=== PATIENT | male | born 1980 | race Caucasian/White ===

== ENCOUNTER 2024-01-24 18:37 | Emergency (ER) | payer BC ==
[2024-01-24 18:51] VITALS: BP 106/53; PULSE 58; RESP 18; TEMP 98.4
== END 2024-01-24 20:34 | disposition short-term general hospital (02) ==
LOC: JER 18:37
DX: F19.20 Other psychoactive substance dependence, uncomplicated (principal)
CPT/HCPCS: 99283-25; 99284-25; 99285-25

== ENCOUNTER 2024-01-24 21:04 | Inpatient (IN) | payer BC ==
[2024-01-24 21:47] VITALS: BMI 19.5
[2024-01-24] MEDS ORDERED: MAGNESIUM HYDROX 2400MG/30ML ORAL SUSPENSION 30 ML CUP PO PRN (22:38)
[2024-01-24] MEDS ORDERED: NALOXONE HCL 0.4 MG/ML VIAL IM PRN (22:38)
[2024-01-24] MEDS ORDERED: LOPERAMIDE HCL 2 MG CAPSULE PO PRN (22:38)
[2024-01-24] MEDS ORDERED: BENZONATATE 200 MG CAPSULE PO PRN (22:38)
[2024-01-24] MEDS ORDERED: BISMUTH SUBSALICYLATE 524 MG/30 ML PO PRN (22:38)
[2024-01-24] MEDS ORDERED: NICOTINE POLACRILEX 4 MG GUM BUC PRN (22:38)
[2024-01-24] MEDS ORDERED: guaiFENesin 600 MG TABLET.ER (FP) PO PRN (22:38)
[2024-01-24] MEDS ORDERED: NALOXONE HCL (KLOXXADO) 8 MG SPRAY NS PRN (22:38)
[2024-01-24] MEDS ORDERED: ACETAMINOPHEN 325 MG TABLET (FP) PO PRN (22:38)
[2024-01-24] MEDS ORDERED: BENZOCAINE/MENTHOL (CHLORASEPTIC ) LOZENGE MM PRN (22:38)
[2024-01-24] MEDS ORDERED: ONDANSETRON *ODT* 4 MG TABLET SL PRN (22:38)
[2024-01-24] MEDS ORDERED: MAG HYDROX/AL HYDROX/SIMETH 30 ML UNIT-DOSE CUP PO PRN (22:38)
[2024-01-24] MEDS ORDERED: DICYCLOMINE HCL 10 MG CAPSULE PO PRN (22:38)
[2024-01-24] MEDS ORDERED: POLYETHYLENE GLYCOL (HEALTHYLAX) 3350 17 GM PACKET PO PRN (22:38)
[2024-01-25] MEDS: hydrOXYzine PAMOATE 25 MG CAPSULE (FP) PO PRN (07:39)
[2024-01-25] MEDS: IBUPROFEN 400 MG TABLET (FP) PO PRN (07:39)
[2024-01-25] MEDS: METHOCARBAMOL 500 MG TABLET PO PRN (07:39)
[2024-01-25] MEDS: methaDONE HCL 10 MG TABLET (FOR DETOX USE ONLY) PO ONE (09:20)
[2024-01-25] MEDS: PRENATAL VITAMINS W/ FOLIC ACID TABLET (FP) PO SCH (09:21)
[2024-01-25] MEDS: NICOTINE 21 MG/24 HOURS TOPICAL PATCH TD SCH (09:30)
[2024-01-25 11:59] LABS: HEMATOCRIT 37.4 % (35.4-49); HEMOGLOBIN 11.9 GM/dL (11.7-16.9); MCH 25.5 pg (25.7-33.7); MEAN CELL VOLUME 79.6 fl (80-96); MEAN PLT VOLUME 7.6 fl (7.5-11.1); PLATELET COUNT 460 10^3/uL (134-434); RBC 4.69 M/mm3 (4.00-5.60); WHITE BLOOD COUNT 5.7 K/mm3 (4.0-10.0)
[2024-01-25 12:55] LABS: CHLORIDE 108 mmol/L (98-107); POTASSIUM 3.9 mmol/L (3.5-5.1); SODIUM 137 mmol/L (136-145)
[2024-01-25 13:01] LABS: BLOOD UREA NITROGEN 10.9 mg/dL (7-18); CALCIUM 9.2 mg/dL (8.5-10.1)
[2024-01-25 13:02] LABS: ALBUMIN 3.3 g/dl (3.4-5.0); ANION GAP 2 mmol/L (4-13); CO2 27 mmol/L (21-32); GLUCOSE,RANDOM 99 mg/dL (74-106)
[2024-01-25 13:05] LABS: BILIRUBIN,TOTAL 0.6 mg/dL (0.2-1); CREATININE 0.7 mg/dL (0.55-1.3); SGOT/AST 19 U/L (15-37); SGPT/ALT 58 U/L (13-61)
[2024-01-25 13:07] LABS: TOT PROT 6.8 g/dl (6.4-8.2)
[2024-01-25 13:08] LABS: ALK PHOS 97 U/L (45-117)
[2024-01-25] MEDS: THIAMINE HCL 100 MG TABLET (FP) PO SCH (22:17)
[2024-01-25] MEDS: MELATONIN 5 MG TABLETS PO SCH (22:17)
[2024-01-25] MEDS: cloNIDine HCL 0.1 MG TABLET PO PRN (22:17)
[2024-01-25] MEDS: diazePAM 5 MG TABLET PO PRN (22:21)
[2024-01-27] MEDS: methaDONE HCL 10 MG TABLET (FOR DETOX USE ONLY) PO ONE (09:53)
[2024-01-27 20:09] LABS: HIV INTERPRETATION NEGATIVE (NEGATIVE)
[2024-01-28] MEDS: diazePAM 5 MG TABLET PO PRN (22:08)
[2024-01-29] MEDS: methaDONE HCL 10 MG TABLET (FOR DETOX USE ONLY) PO ONE (10:18)
[2024-01-30] MEDS: IBUPROFEN 600 MG TABLET (FP) PO PRN (06:14)
[2024-01-30 09:20] VITALS: BP 125/76; PULSE 92; RESP 17; TEMP 98
== END 2024-01-30 09:05 | disposition home or self-care (01) | DRG 773 ==
LOC: YASAS 21:04 → Y6N 23:01
PROVIDERS: ADMIT Allergy & Immunology; ATTEND Surgery
PROC: HZ2ZZZZ Detoxification Services for Substance Abuse Treatment (ICD-10-PCS; principal; 2024-01-24)
DX: F11.23 Opioid dependence with withdrawal (principal); F14.20 Cocaine dependence, uncomplicated; F13.20 Sedative, hypnotic or anxiolytic dependence, uncomplicated; F12.20 Cannabis dependence, uncomplicated; F17.210 Nicotine dependence, cigarettes, uncomplicated; F19.24 Other psychoactive substance dependence with psychoactive substance-induced mood disorder; R76.11 Nonspecific reaction to tuberculin skin test without active tuberculosis; Z28.310 Unvaccinated for COVID-19; Z28.9 Immunization not carried out for unspecified reason; Z99.89 Dependence on other enabling machines and devices
CPT/HCPCS: 36415; 71046-TC-FY; 80053; 80305; 80307; 85027; 86780; 87389; 93005; 93010